=== PATIENT | female | born 1980 | race Asian ===

== ENCOUNTER 2018-11-29 23:16 | Inpatient (IN) ==
--- OUTSIDE RECORDS SUMMARY | 2018-11-29 23:45 | External Medical Summary | Continuity of Care Document ---
:1980 Author Name Daniel Salcido, Provider Address Unavailable Unavailable , Care Team Providers Name Role Phone Delfina Salcido, Lyndon Dennison Unavailable [email or web address], [place] PCP, UNKNOWN Unavailable Unavailable Unavailable Unavailable Unavailable Problems Supervision of elderly multigravida in third trimester (V23. 82) (O09.523) Gestational diabetes mellitus in third trimester (648.83) (O 24.419) History of miscarriage (V13.29) (Z87.59) Pap smear of cervix shows high risk HPV present (795.05) (R8 7.810) Hepatitis B infection without delta agen t without hepatic coma (070.30) (B19.10) Allergies and Adverse Reactions No Known Drug Allergies (Allergy) Medications Pre- TABS Refills: 0 Procedures Non-stress test Date: 23-Nov-2018 US, Ob, Abdom Circumference Date: 05-Nov-2018 Immunizations Immunizations not documented Family History Unknown Family Member No pertinent family history (V49.89) (Z78.9) Status: Active Comments: Family History Plan of Treatment Planned Encounters Appointment; Lyndon Mathis M.D. Start: 01-Dec-2018 14:45 Reques t Planned Observations Planned Goals not documented Results Hepatitis B QUANT Viral Laboratory: [facility], Comm ents: [facility] Req Number Load INC [id number] ACCESSI ON NUMBER: [id number] 05-Nov-2018 14:03 HEP B DNA QUANT LOG IU/ML <1.00 Range: Log IU/mL {Log_IU/mL} (above high Comments: HBV DN A DetectedHBV DNA was detected below10 IU/mL. Viral nucleic aciddetected below this levelcannot be quantified by theassay.Reference Range: Not Detected IU/mL threshold) Not Detected Log IU/mLThis test was performed using Real-Time PolymeraseChain Reaction.Reportable range is 10 IU/mL to 1,000,000,000 IU/mL(1.00 Log IU/mL - 9.00 Log IU/mL).The analytic al performance darleen cteristics of thisassay have been determined by [facility] [place]. The modificationshave not been cleared or approved by the FDA. Thisassay has been v alidated pursuant to the CLIAregulations and is used for clinical purposes.THIS TEST WAS PERFORMED AT:[facility] [address] [id number] ALDRICH MD, PHD HEPATITIS B DNA QUANTITATIVE Range: IU/ mL <10 {IU/mL} (above high Comments: HBV DN A Detected threshold) Liver Fibrosis Test Laboratory: [facility], Comments : [facility] Req Number INC [id number] ACCESSI ON NUMBER: [id number] 05-Nov-2018 14:03 Liver Fibrosis Score 0.07 Liver Fibrosis Stage F0 Liver Fibrosis Interpretation Comments: no fibrosisFibro Test SEE BELOW Score Metavir Scor e0.00-0.21 F0 no fibrosis0.22-0.27 F0-F10.28-0.31 F1 minimal fibrosi s0.32-0.48 F1-F20.49-0. 58 F2 moderat e fibrosis0.59-0.72 F3 advanced fibrosis0.73-0.74 F3-F40.75-1.00 F4 severe fibrosis Necroinflammation Act Score 0.04 Necroinflammation Act Grade A0 Necroinflammation Interp SEE Comments: n o activityActiTest BELOW Score Metavir Score0.00-0.17 A0 no activity0.18-0 .29 A0-A10.30-0.36 A1 minimal activity 0.37-0.52 A1-A20.53-0.6 0 A2 significa nt activity0.61-0.62 A2-A30.63-1.00 A3 severe activity Liver Fibrosis Reference ID [id number] Liver Fibrosis Footnote SEE Comments: Th e reliability of BELOW results is dependent on compliance withthe preanalytical and an alytical conditions recommend ed byBioPredictive. The tests have to be deferred for: acutehemolysis, acut e hepatitis, acute inf lammation, extrahepatic cholest asis. The advice of a speciali st should besought for interpr etation in chronic hemolysis an uma Franco'ssyndrome. T he test interpretation is no t validated in livertransplant p atients. Isolated extreme sotero ues of one of thecomponents elida tiffanyd lead to caution in interpret ing theresults. In case of discordance between a biopsy result kwabena test, it is recommended to seek the advice of aspecialist. The causes of these discordances c ould be due toa flaw of the test or to a flaw in the biopsy: i.e. a liverbiopsy has a 33 % variability rate for one fibrosis stage.Fibro Test is interpretable for ch ronic hepatitis B and C,al coholic and non alcoholic steato sis. ActiTest isinterpret able for chronic hepatitis B and C.The performance characte ristics have been determined by[facility], [place]. Ithas not been cleared or appr sumit by the U.S. Food and DrugAdministration. Performance characteristics refe r to theanalytical perfor caron of the test.Datam, [employer], the ass ociated logo, [facility] [employer] and all associated [employer] melvin are theregiste red trademarks of [facility]. All [address] partymarks - (R) and (TM) - are the property of [employer] respectiveowners. (C ) 9613-1122 [facility] [employer]. Allrights reserved.T HIS TEST WAS PERFORMED AT:[facility] [id number] [place], [place] [address]KCEKendrick PHIPPS, PHD Liver Fibros Bbzlb-8-Ktdwkqcrw Range: 1 06-279 mg/dL 210 mg/dL Liver Fibrosis Haptoglobin 79 Range: 43 -212 mg/dL mg/dL Liver Fibrosis Apolipoprotien Range: 10 1-198 mg/dL A-1 201 mg/dL (above high threshold) LIver Fibrosis Total Bilirubin Range: 0 .2-1.2 mg/dL 0.4 mg/dL Liver Fibrosis GGT 15 U/L Range: 3-50 U /L Liver Fibrosis ALT 17 U/L Range: 6-29 U /L Non-stress test Laboratory: In House (Pending) 15-Nov-2018 15:11 Non-Stress Test Reactive Group B Strep/FARR 15-Nov-2018 18:22 GRP B BETA STREP CULTURE - FARR ORDERED PROCEDURE : GRP B Beta Strep Culture -FARR; Speciment : Vaginal/Rectal Source of Specimen: Vaginal/Rectal Group B Strep Culture : No Group B Strep isolated Non-stress test Laboratory: In House (Pending) 18-Nov-2018 9:38 Non-Stress Test Reactive Non-stress test Laboratory: In House (Pending) 23-Nov-2018 14:54 Non-Stress Test Reactive Non-stress test Laboratory: In House (Pending) 26-Nov-2018 11:04 Non-Stress Test Reactive Vital Signs 26-Nov-2018 9:25 Systolic 100 mm[Hg] Diastolic 62 mm[Hg] Height 62.5 in Weight 151.4 lb BMI Calculated 27.25 kg/m2 BSA Calculated 1.71 m2 23-Nov-2018 14:02 Systolic 102 mm[Hg] Diastolic 70 mm[Hg] Height 62.5 in Weight 151 lb BMI Calculated 27.18 kg/m2 BSA Calculated 1.71 m2 18-Nov-2018 9:01 Systolic 106 mm[Hg] Diastolic 64 mm[Hg] Height 62.5 in Weight 150.2 lb BMI Calculated 27.03 kg/m2 BSA Calculated 1.7 m2 15-Nov-2018 14:26 Systolic 102 mm[Hg] Diastolic 66 mm[Hg] Height 62.5 in Weight 150.4 lb BMI Calculated 27.07 kg/m2 BSA Calculated 1.7 m2 05-Nov-2018 13:42 Systolic 126 mm[Hg] Diastolic 80 mm[Hg] Height 62.5 in Weight 148.8 lb BMI Calculated 26.78 kg/m2 BSA Calculated 1.7 m2 Encounters Appointment; OB SC1, Nonstress Test 26-Nov-2018 9:00 Encounter Diagnosis: Problem not documented Appointment; Lore Sarabia M.D. 23-Nov-2018 14:00 Encounter Diagnosis: Problem not documented Appointment; OB SC1, Nonstress Test 23-Nov-2018 13:30 Encounter Diagnosis: Problem not documented Appointment; OB SC1, Nonstress Test 18-Nov-2018 9:00 Encounter Diagnosis: Problem not documented Appointment; Sivakumar Seymour M.D. 15-Nov-2018 14:40 Encounter Diagnosis: Problem not documented Appointment; OB SC1, Nonstress Test 15-Nov-2018 14:15 Encounter Diagnosis: Problem not documented Appointment; OBGYN SC1, Ultrasound 15-Nov-2018 14:00 Encounter Diagnosis: Problem not documented Appointment; Mala Manley M.D. 05-Nov-2018 13:40 Encounter Diagnosis: Problem not documented Appointment; Lyndon Mathis M.D. 20-Oct-2018 13:00 Encounter Diagnosis: Problem not documented Appointment; Mala Manley M.D. 11-Oct-2018 9:20 Encounter Diagnosis: Problem not documented Appointment; OBGYN SC2, Ultrasound 11-Oct-2018 9:00 Encounter Diagnosis: Problem not documented Appointment; Nila Enriquez DO 24-Sep-2018 14:40 Encounter Diagnosis: Problem not documented Appointment; OB SC1, Procedure Rm 24-Sep-2018 14:40 Encounter Diagnosis: Problem not documented Appointment; OBGYN SC1, Ultrasound 24-Sep-2018 13:45 Encounter Diagnosis: Problem not documented Appointment; OB SC1, Nursing Station 16-Sep-2018 13:30 Encounter Diagnosis: Problem not documented Appointment; Lyndon Mathis M.D. 01-Dec-2018 14:45 Encounter Diagnosis: Problem not documented
[2018-11-30] MEDS ORDERED: LACTATED RINGER'S 1,000 ML IV PRN ×3 (00:04→03:02)
[2018-11-30] MEDS ORDERED: OXYTOCIN 30 UNITS/500 ML BAG IV PRN ×3 (00:04→10:13)
[2018-11-30 00:21] LABS: Hematocrit (blood only) 38.3 % (37-47); Hemoglobin 12.7 g/dL (12.0-16.0); Mean Corpuscular Volume 91.6 fL (80-100); Mean Platelet Volume 11.3 fL (7.4-10.4); Platelet Count 118 K/uL (130-400); RDW Coefficient of Variation 15.1 % (11.5-14.5); RDW Standard Deviation 50.9 fL (36.4-46.3); Red Blood Count 4.18 M/uL (4.2-5.4); White Blood Count 6.05 K/uL (4.8-10.8)
[2018-11-30 00:35] LABS: Mean Corpuscular Hgb Conc 33.2 g/dL (32-36)
--- NOTE | 2018-11-30 00:35 | History & Physical Report ---
Date of Service November 30, 2018 Assessment & Plan (1) 39 weeks gestation of : (2) AMA (advanced maternal age) multigravida 35+: (3) Gestational diabetes mellitus (GDM): bsg 99, plan q2hr check (4) Hepatitis B affecting in third trimester: (5) PROM (premature rupture of membranes): admit, iv, labs. will see if develops labor pattern and if not may need to add pitocin. fhts categ 1. History of Present Illness Chief Complaint: regular ctx and leaking since 1030pm 11/29/18 Primary Care Provider: NO PCP 38yo at 39wks ega presents to L&D with above cc. Leaking at 1025pm, called and related some ctx. Advised to come to L&D where nurse noted gross rom, clear fluid and cx 4cm. Pt denies painful ctx pattern. No vb. +FM. PNC c/b 1. ama 2. gdm--untreated 3. 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 Beliefs That Will Affect Care: None marital status: Current Living Situation: Other Current Living Situation Comment: sister Other Information That Helps Us Care for You: No Feels Safe at Home: Yes Safety Concerns: Feels Safe At This Time Smoking Status: Never smoker Hx Alcohol Use: No Hx Substance Use: No Review of Systems per hpi Physical Exam Constitutional: WD/WN, vitals as above Gastrointestinal (Abdomen): gravid nt, efw 7-8# Musculoskeletal: no edema, nt calves Genitourinary: Manual OB Exam: + cervical dilation (per nurse) 4 cm, + station (well applied per nurse) and + amniotic fluid (gross srom ) clear and nitrazine positive OB Exam Monitor Tracing: + external FHT monitor used (135 mod variability reactive), + external uterine monitor used (q2-4) and + category I Results & Data Vital Signs (Past 12 Hours) Vital Signs Temp Pulse Resp BP 11/29/18 23:35 98.2 F 72 18 112/66 11/29/18 23:33 98.2 F 72 18 112/66
[2018-11-30] MEDS ORDERED: ePHEDrine sulfate 50 MG/ML AMP ONE (02:02)
[2018-11-30] MEDS ORDERED: fentaNYL citrate 100 MCG/2 ML VIAL ONE (02:02)
[2018-11-30] MEDS ORDERED: BUPIVACAINE 0.25% 30 ML VIAL ONE (02:02)
[2018-11-30] MEDS ORDERED: fentaNYL 2MCG/ML ROPIV 1.25MG/ML 100 ML BAG EPI ONE (02:03)
--- NOTE | 2018-11-30 02:34 | Anesthesiology Consultation ---
Date of Service November 30, 2018 Assessment & Plan (1) Encounter for pre-operative examination: Chart Review Chart Review: Patient NOT seen in Pre Admission Testing and Acceptable Risk for Labor Epidural Consults Requested none ASA ASA2 Proposed Anesthesia Anesthesia Type: Labor Epidural and CSE Risk / Benefits Reviewed With: PT / POA / Parent / Guardian, Accepts Plan and Informed Consent Obtained History Height/Weight Height: 5 ft 2 in Weight: 68.492 kg Allergies Allergy/AdvReac Type Severity Reaction Status Date / Time No Known Allergies Allergy Unverified 11/30/18 00:41 Medications Home Medications Medication Instructions Recorded Confirmed Last Taken PNV cmb#95-ferrous fumarate-FA 1 tab PO DAILY 11/30/18 11/30/18 11/29/18 09:00 [] Active Medications Generic Name Dose Route Start Last Admin Trade Name Freq PRN Reason Stop Dose Admin Lactated Ringer's 1,000 mls @ 999 mls/hr 11/30/18 00:04 11/30/18 01:58 Lr IV 12/30/18 00:03 999 mls/hr .Q1H1M PRN Administration Pre-Anesthesia NPO Date Last Intake of Fluids: 11/30/18 Time Last Intake of Fluids: 00:30 Date Last Intake of Solids: 11/29/18 Time Last Intake of Solids: 19:00 Past Medical History Medical History Abnormal Pap smear of cervix Gestational diabetes mellitus Hepatitis B Exercise / Class Metabolic Activity II 4-5 Yardwork/Stairs/Walk up hill Past Anesthesia History No Hx of Anesthesia Complications and No Family Hx of Anesthesia Complications History of PONV No Hx of PONV, No Family Hx of PONV and No Hx of Motion Sickness Social History Smoking Status: Never smoker Hx Alcohol Use: No Hx Substance Use: No Review of Systems no chest pain or sob Physical Exam Vital Signs Last Vital Signs Temp 36.5 C 11/30/18 01:31 Pulse 84 11/30/18 02:37 Resp 18 11/29/18 23:35 BP 105/79 11/30/18 02:22 Pulse Ox 100 11/30/18 02:37 ENMT Mouth: no TMJ abnormality Thyromental Distance: > or= 3.5 Finger Breadths Mallampati Class: II Neck normal visual inspection Respiratory normal respiratory effort Auscultation: lungs clear to auscultation bilaterally Cardiovascular Rate/Rhythm: regular rate and regular rhythm Musculoskeletal Spine: normal cervical ROM Neurologic moves all extremities Psychiatric Orientation: alert and oriented x 3 Testing Laboratory Results 11/30/18 00:11 11/30/18 00:15 POC Glucose 99
[2018-11-30] MEDS ORDERED: DiphenhydrAMINE HCL 50 MG/ML VIAL IV PRN (03:02)
[2018-11-30] MEDS ORDERED: NALOXONE HCL 1 MG in SODIUM CHLORIDE 0.9% 1000ML 1,000 ML IV PRN (03:02)
[2018-11-30] MEDS ORDERED: ONDANSETRON INJ 2 MG/ML 2 ML VIAL IV PRN (03:02)
[2018-11-30] MEDS ORDERED: NALBUPHINE HCL INJ 10 MG/ML AMP IV PRN (03:02)
[2018-11-30] MEDS ORDERED: fentaNYL 2MCG/ML ROPIV 1.25MG/ML 100 ML BAG EPI PRN (03:02)
[2018-11-30] MEDS ORDERED: ePHEDrine sulfate 50 MG/ML AMP IV PRN (03:02)
[2018-11-30] MEDS ORDERED: NALOXONE HCL 0.4 MG/1 ML VIAL/CARP IV PRN (03:02)
[2018-11-30] MEDS: LACTATED RINGER'S 1,000 ML IV SCH ×2 (03:05→07:34)
--- NOTE | 2018-11-30 08:26 | Obstetrical Progress Note ---
Date of Service November 30, 2018 Subjective pt comfortable with epidural, late entry due to attending another rapid delivery Physical Exam Genitourinary: Manual OB Exam: + cervical dilation 8 cm, + cervical effacement 100% and + station 0 OB Exam Monitor Tracing: + external FHT monitor used (categ 1) and + external uterine monitor used (q2-3) pit at 7 Results & Data Vital Signs (Past 12 Hours) Vital Signs Temp Pulse Resp BP Pulse Ox 11/30/18 08:22 77 96 11/30/18 08:17 75 97 11/30/18 08:15 76 104/60 11/30/18 08:12 80 97 11/30/18 08:07 76 97 11/30/18 08:02 90 97 11/30/18 07:58 75 99/56 L 11/30/18 07:57 79 96 11/30/18 07:52 79 97 11/30/18 07:47 78 97 11/30/18 07:43 78 98/58 L 11/30/18 07:42 83 96 11/30/18 07:37 78 97 11/30/18 07:32 80 97 11/30/18 07:29 77 109/67 11/30/18 07:27 83 96 11/30/18 07:25 98.6 F 18 11/30/18 07:22 83 95 11/30/18 07:17 84 95 11/30/18 07:14 78 105/57 L 11/30/18 07:12 81 95 11/30/18 07:07 79 96 11/30/18 07:02 82 96 11/30/18 06:58 86 89/55 L 11/30/18 06:57 86 96 11/30/18 06:52 82 97 11/30/18 06:47 86 97 11/30/18 06:44 84 96/52 L 11/30/18 06:42 85 95 11/30/18 06:37 85 97 11/30/18 06:32 88 97 11/30/18 06:28 82 18 102/61 11/30/18 06:27 85 96 11/30/18 06:22 85 97 11/30/18 06:17 98 H 97 11/30/18 06:13 83 108/62 11/30/18 06:12 85 97 11/30/18 06:07 91 H 96 11/30/18 06:02 89 97 11/30/18 06:00 85 94/56 L 11/30/18 05:58 92 H 18 82/53 L 11/30/18 05:57 96 H 95 11/30/18 05:52 99 H 98 11/30/18 05:47 94 H 93 11/30/18 05:44 87 100/56 L 11/30/18 05:42 88 98 11/30/18 05:37 86 98/53 L 97 11/30/18 05:36 100 H 91/50 L 11/30/18 05:35 88 86/51 L 11/30/18 05:33 98.2 F 100 H 18 87/52 L 11/30/18 05:32 100 H 98 11/30/18 05:27 98 H 97/55 L 97 11/30/18 05:26 92 H 94 11/30/18 05:22 85 99/58 L 98 11/30/18 05:20 86 92/51 L 11/30/18 05:18 88 110/57 L 11/30/18 05:17 98 H 100 11/30/18 05:16 93 H 87/54 L 11/30/18 05:15 84 80/52 L 11/30/18 05:13 98.2 F 90 18 83/53 L 11/30/18 05:12 96 H 98 11/30/18 05:07 88 95 11/30/18 05:02 87 98 11/30/18 04:57 85 99/58 L 98 11/30/18 04:52 90 98 11/30/18 04:47 85 99 11/30/18 04:42 86 18 93/55 L 97 11/30/18 04:37 86 97 11/30/18 04:32 89 96 11/30/18 04:27 96 H 18 93/59 L 98 11/30/18 04:22 104 H 99 11/30/18 04:17 80 98 11/30/18 04:12 90 98 11/30/18 04:11 90 18 93/61 L 11/30/18 04:07 107 H 98 11/30/18 04:02 84 98 11/30/18 03:57 84 18 97/57 L 98 11/30/18 03:52 88 98 11/30/18 03:47 88 98 11/30/18 03:42 82 18 103/60 98 11/30/18 03:37 78 97 11/30/18 03:32 82 97 11/30/18 03:27 84 98 11/30/18 03:26 98.4 F 81 16 98/59 L 11/30/18 03:22 94 H 98/56 L 97 11/30/18 03:18 77 101/57 L 11/30/18 03:17 83 98 11/30/18 03:13 83 106/64 11/30/18 03:12 81 99 11/30/18 03:07 78 18 107/58 L 99 11/30/18 03:05 80 103/63 11/30/18 03:03 78 124/66 11/30/18 03:02 79 100 11/30/18 03:01 81 95/61 L 11/30/18 02:59 72 93/57 L 11/30/18 02:58 70 102/57 L 11/30/18 02:57 75 100 11/30/18 02:55 82 107/77 11/30/18 02:53 69 100/66 11/30/18 02:52 72 100 11/30/18 02:47 78 100 11/30/18 02:42 76 100 11/30/18 02:37 84 100 11/30/18 02:32 77 100 11/30/18 02:27 87 100 11/30/18 02:22 80 105/79 100 11/30/18 02:17 70 100 11/30/18 02:12 91 H 100 11/30/18 01:31 97.7 F 11/29/18 23:35 98.2 F 72 18 112/66 11/29/18 23:33 98.2 F 72 18 112/66
[2018-11-30] MEDS ORDERED: SUPERCREAM 0.870% 15 GM JAR EXT PRN (10:13)
[2018-11-30] MEDS ORDERED: IBUPROFEN 600 MG TAB PO PRN (10:13)
[2018-11-30] MEDS ORDERED: ACETAMINOPHEN 325 MG TAB PO PRN (10:13)
[2018-11-30] MEDS ORDERED: HYDROCORTISONE ACETATE 25 MG SUPP PR PRN (10:13)
[2018-11-30] MEDS ORDERED: DIPHTHERIA/TETANUS/PERTUSSIS 0.5 ML SYR/VIAL IM ONE (10:13)
[2018-11-30] MEDS ORDERED: BENZOCAINE 20% AER SPR 82.5 GM CAN EXT PRN (10:13)
--- NOTE | 2018-11-30 11:09 | Anesthesia Procedure Note ---
Date of Service November 30, 2018 Anesthesia Post Epidural Note Vital Signs Vital Signs: Temp Pulse Resp BP Pulse Ox 36.6 C 75 18 101/59 L 95 11/30/18 09:37 11/30/18 10:58 11/30/18 10:13 11/30/18 10:58 11/30/18 09:53 Pain Intensity Bilateral Abdomen: Pain Intensity: 0 Notes Mental Status: alert / awake / arousable Patient Amnestic to Procedure: No Nausea / Vomiting: adequately controlled Pain: adequately controlled Airway Patency, RR, SpO2: stable & adequate BP & HR: stable & adequate Hydration State: stable & adequate Neuraxial Anesthesia: sensory block resolved Anesthetic Complications: no major complications apparent and Pt Satisfied with anesthetic care Epidural: Removed without complications and With tip intact
[2018-11-30] MEDS ORDERED: HYDROCORTISONE 2.5% CR 30 GM TUBE EXT PRN (18:56)
[2018-11-30] MEDS: DOCUSATE SODIUM 100 MG CAP PO SCH (20:19)
[2018-12-01 06:08] LABS: Hematocrit (blood only) 33.8 % (37-47); Hemoglobin 11.2 g/dL (12.0-16.0); Mean Corpuscular Hgb Conc 33.1 g/dL (32-36); Mean Corpuscular Volume 91.8 fL (80-100); RDW Coefficient of Variation 15.5 % (11.5-14.5); RDW Standard Deviation 51.7 fL (36.4-46.3); Red Blood Count 3.68 M/uL (4.2-5.4); White Blood Count 10.21 K/uL (4.8-10.8)
[2018-12-01 06:28] LABS: Platelet Count 95 K/uL (130-400)
[2018-12-01 06:29] LABS: Platelet Estimate Decreased (Normal)
--- NOTE | 2018-12-01 07:32 | Obstetrical Progress Note ---
Date of Service <Kristal Estrada MD - Last Filed: 12/01/18 08:25> December 01, 2018 Assessment & Plan <Kristal Estrada MD - Last Filed: 12/01/18 08:25> (1) care following vaginal delivery: 38yo with at 39 weeks. PPD #1 -Routine care -Ambulation encouraged -Pain control Subjective <Kristal Estrada MD - Last Filed: 12/01/18 08:25> Ambulation: ambulating normally Voiding: no voiding problems Passing Gas:: Yes Diet Tolerance:: regular diet Lochia:: Moderate Feeding Type:: breast feeding Current Pain Level(1-10): 1 Eyes: no problem reported (no blurry vision) Respiratory: no dyspnea Cardiovascular: no chest pain, no palpitations, no lightheadedness, no edema and no calf pain Gastrointestinal: no nausea and no vomiting Genitourinary (female): no dysuria Neurologic: no headache(s) Physical Exam <Kristal Estrada MD - Last Filed: 12/01/18 08:25> Vital Signs (Past 24 Hours) Last Vital Signs Temp 36.5 C 12/01/18 03:55 Pulse 80 12/01/18 03:55 Resp 18 12/01/18 03:55 BP 100/66 12/01/18 03:55 Pulse Ox 94 12/01/18 03:55 Respiratory normal respiratory effort, lungs clear to auscultation Cardiovascular Rate/Rhythm: regular rate and regular rhythm Extremities: no calf tenderness and no edema Genitourinary OB Exam Abdomen: + fundal height Fundus: + firm and + relation to umbilicus (at umbilicus) Results & Data <Kristal Estrada MD - Last Filed: 12/01/18 08:25> Laboratory Results Laboratory Results - last 24 hr 11/30/18 12/01/18 08:12 05:54 WBC 10.21 RBC 3.68 L Hgb 11.2 L Hct 33.8 L MCV 91.8 MCH 30.4 MCHC 33.1 RDW Std Deviation 51.7 H RDW Coeff of Maryam 15.5 H Plt Count 95 L MPV 11.0 H Platelet Estimate Decreased POC Glucose 95 Medications Administered Home Medications PNV cmb#95-ferrous fumarate-FA [] 1 tab PO DAILY 11/30/18 [History Confirmed 11/30/18] Active Medications Acetaminophen (Tylenol) 650 mg PO Q6H PRN PRN Reason: Pain/PAN/Fever Stop: 12/30/18 10:12 Benzocaine (Dermoplast Pain Relieving Vinco) 1 appln EXT PRN PRN PRN Reason: Perineal Discomfort Stop: 12/30/18 10:12 Last Admin: 11/30/18 20:18 Dose: 1 appln Documented by: Bisacodyl (Dulcolax) 5 mg PO 1999 ON LICENSE OF [facility] Stop: 12/01/18 20:01 Bisacodyl (Dulcolax) 10 mg RI DAILY PRN PRN Reason: No BM on 2nd post- day Stop: 01/01/19 10:33 Cocaine HCl (Supercream 0.870%) 1 gm EXT BID PRN PRN Reason: Hemorrhoidal Inflammation Stop: 12/14/18 10:12 Docusate Sodium (Colace) 100 mg PO BID ON LICENSE OF [facility] Stop: 12/30/18 20:59 Last Admin: 11/30/18 20:19 Dose: 100 mg Documented by: Hydrocortisone (Anusol Hc) 25 mg RI BID PRN PRN Reason: Hemorrhoidal Inflammation Stop: 12/30/18 10:12 Hydrocortisone (Hydrocortisone 2.5%) 1 appln EXT BID PRN PRN Reason: Rash Stop: 12/30/18 18:55 Lactated Ringer's (Lr) 1,000 mls @ 125 mls/hr IV .Q8H ON LICENSE OF [facility] Stop: 12/02/18 00:14 Last Infusion: 11/30/18 10:33 Dose: Infused Documented by: Oxytocin (Pitocin) 30 units in 500 mls @ 333.333 mls/hr IV .Q1H30M PRN; Protocol PRN Reason: Bleeding Control Last Titration: 11/30/18 15:07 Dose: Infused Documented by: Ibuprofen (Motrin) 600 mg PO Q4H PRN PRN Reason: Pain/PAN/Cramping/Fever Stop: 12/30/18 10:12 Prenat Multivit/[employer]/Iron/Folic Ac ( Vitamin) 1 tab PO QAM ON LICENSE OF [facility] Stop: 12/31/18 08:59 <Donny Baum MD - Last Filed: 12/01/18 08:39> Co-Signing Physician Notes Patient seen and agree with findings and plan
--- NOTE | 2018-12-01 08:54 | Delivery Summary ---
DATE OF OPERATION: 11/30/2018 PROCEDURE: Normal spontaneous vaginal delivery, second-degree perineal laceration repair. SURGEON: Donny Baum MD PREOPERATIVE DIAGNOSES: 1. Single intrauterine at term. 2. Hep B positive with negative viral load, GBS negative. 3. Labor. POSTOPERATIVE DIAGNOSES: 1. Single intrauterine at term. 2. Hep B positive with negative viral load, GBS negative. 3. Labor. 4. Delivered. ESTIMATED BLOOD LOSS: 250 mL. DRAINS: None. FLUIDS: Continuous lactated ringer. URINE OUTPUT: Not measured. INDICATIONS: Ms. Farnsworth is a 38-year-old G2, P1-0-0-1, admitted at 39 weeks plus gestational age. The patient's course was complicated by: 1. Advanced maternal age. 2. Gestational diabetes mellitus. 3. Hep B positive affect in . 4. premature rupture of membranes. Upon presentation, the patient was found to be 4 cm dilated, but maricel inconsistently. She was allowed several hours to allow for spontaneous onset of labor; however, this did not occur. The patient was started on oxytocin per regular protocol. Oxytocin was continued to be titrated. The patient continued to advance in labor. She received an epidural for anesthesia and progressed to complete-complete, +2. DESCRIPTION OF PROCEDURE: The patient progressed to 10 cm dilated, 100% effaced, +2 station, pushed over intact perineum with epidural anesthesia and delivered a viable male with weight pending and Apgars of 8 and 9 at 1 and 5 minutes respectively. Head of the delivered in BENJAMIN position and rest into right transverse. Body and shoulders quickly followed. was noted to be vigorous upon delivery and a 1-minute delayed cord clamping was initiated. Cord was then double clamped and cut. Cord blood was obtained. Attention was then turned to the delivery. The placenta was delivered intact with 3-vessel cord with gentle cord traction. After delivery of placenta, inspection of the perineum, vagina noted a small second-degree perineal laceration which was repaired with 3-0 Vicryl continuous running stitch in the traditional crown fashion. Needle, sponge and instrument counts were correct at the completion of the case. Both mother and were stable in the immediate post-delivery. I attest to the content of the Intraoperative Record and any orders documented therein. Any exception s are noted below.
[2018-12-01] MEDS: PRENATAL VITAMIN 1 TAB PO SCH (09:00)
[2018-12-01] MEDS: DOCUSATE SODIUM 100 MG CAP PO SCH ×2 (09:00→20:09)
[2018-12-01] MEDS ORDERED: BISACODYL 5 MG TABEC PO SCH (20:00)
--- NOTE | 2018-12-02 08:17 | Obstetrical Progress Note ---
Date of Service <Kristal Estrada MD - Last Filed: 12/02/18 08:20> December 02, 2018 Assessment & Plan <Kristal Estrada MD - Last Filed: 12/02/18 08:20> (1) care following vaginal delivery: 38yo with at 39 weeks. PPD #2 -Pt doing well. -Stable for discharge today -Discharge instructions reviewed. Subjective <Kristal Estrada MD - Last Filed: 12/02/18 08:20> Ambulation: ambulating normally Voiding: no voiding problems Passing Gas:: Yes Diet Tolerance:: regular diet Lochia:: Small (with passage of some small clots) Feeding Type:: breast feeding Constitutional: + sweats; no fever and no chills Eyes: no problem reported (no blurry vision) Respiratory: no dyspnea Cardiovascular: no chest pain, no palpitations, no lightheadedness, no edema and no calf pain Gastrointestinal: + abdominal pain (diffuse abd pain, more cramping); no nausea and no vomiting Genitourinary (female): no dysuria Neurologic: no headache(s) Physical Exam <Kristal Estrada MD - Last Filed: 12/02/18 08:20> Vital Signs (Past 24 Hours) Last Vital Signs Temp 36.6 C 12/01/18 23:50 Pulse 83 12/01/18 23:50 Resp 18 12/01/18 23:50 BP 104/68 12/01/18 23:50 Pulse Ox 95 12/01/18 23:50 Respiratory normal respiratory effort, lungs clear to auscultation Cardiovascular Rate/Rhythm: regular rate and regular rhythm Extremities: no calf tenderness and no edema Genitourinary OB Exam Abdomen: + fundal height Fundus: + firm and + relation to umbilicus (at umbilicus) Results & Data <Kristal Estrada MD - Last Filed: 12/02/18 08:20> Medications Administered Home Medications PNV [id number] fumarate-FA [] 1 tab PO DAILY 11/30/18 [History Confirmed 11/30/18] Active Medications Acetaminophen (Tylenol) 650 mg PO Q6H PRN PRN Reason: Pain/PAN/Fever Stop: 12/30/18 10:12 Benzocaine (Dermoplast Pain Relieving [place]) 1 appln EXT PRN PRN PRN Reason: Perineal Discomfort Stop: 12/30/18 10:12 Last Admin: 11/30/18 20:18 Dose: 1 appln Documented by: Bisacodyl (Dulcolax) 10 mg MN DAILY PRN PRN Reason: No BM on 2nd post- day Stop: 01/01/19 10:33 Cocaine HCl (Supercream 0.870%) 1 gm EXT BID PRN PRN Reason: Hemorrhoidal Inflammation Stop: 12/14/18 10:12 Last Admin: 12/01/18 17:46 Dose: 1 gm Documented by: Docusate Sodium (Colace) 100 mg PO BID [facility] Stop: 12/30/18 20:59 Last Admin: 12/01/18 20:09 Dose: 100 mg Documented by: Hydrocortisone (Anusol Hc) 25 mg MN BID PRN PRN Reason: Hemorrhoidal Inflammation Stop: 12/30/18 10:12 Hydrocortisone (Hydrocortisone 2.5%) 1 appln EXT BID PRN PRN Reason: Rash Stop: 12/30/18 18:55 Oxytocin (Pitocin) 30 units in 500 mls @ 333.333 mls/hr IV .Q1H30M PRN; Protocol PRN Reason: Bleeding Control Last Titration: 11/30/18 15:07 Dose: Infused Documented by: Ibuprofen (Motrin) 600 mg PO Q4H PRN PRN Reason: Pain/PAN/Cramping/Fever Stop: 12/30/18 10:12 Prenat Multivit/[employer]/Iron/Folic Ac ( Vitamin) 1 tab PO QAM KAM Stop: 12/31/18 08:59 Last Admin: 12/01/18 09:00 Dose: 1 tab Documented by: <Aziza Trevino MD, FACOG - Last Filed: 12/02/18 08:27> Co-Signing Physician Notes Resident Physician Supervision Note: I was present with Dr. Estrada during the history and exam. I discussed the case with the resident and agree with the findings and plan as documented in the not e. Any exceptions or clarifications are listed here: doing well. Interview done with seo associate. Questions answered. d/c instructions received. Documented By: Aziza Trevino MD, FACOG
[2018-12-02 08:20] LABS: Hemoglobin 11.9 g/dL (12.0-16.0)
[2018-12-02] MEDS: PRENATAL VITAMIN 1 TAB PO SCH (08:25)
[2018-12-02] MEDS: DOCUSATE SODIUM 100 MG CAP PO SCH (08:25)
[2018-12-02] MEDS ORDERED: BISACODYL 10 MG SUPP PR PRN (10:34)
== END 2018-12-02 16:50 | disposition home or self-care (01) | DRG 806 ==
LOC: OPB 23:16 → 4S1 23:17 → 4S2 11-30 12:54